=== PATIENT | male | born 1950 | race Caucasian/White ===

== ENCOUNTER 2022-05-09 13:42 | Outpatient (CLI) | payer MEDICARE | END 2022-05-09 13:43 | disposition home or self-care (01) | LOC: CSHWCC 13:42 | PROVIDERS: ATTEND Nurse Practitioner Family | DX: L89.312 Pressure ulcer of right buttock, stage 2 (principal); L89.322 Pressure ulcer of left buttock, stage 2 ==

== ENCOUNTER 2023-02-05 10:19 | Outpatient (CLI) | payer MEDICARE | END 2023-02-05 10:20 | disposition home or self-care (01) | LOC: CSHWCC 10:19 | PROVIDERS: ATTEND Physician Assistant | DX: L89.152 Pressure ulcer of sacral region, stage 2 (principal) | CPT/HCPCS: 99213; G0463 ==

== ENCOUNTER 2023-05-22 13:55 | Outpatient (CLI) | payer MEDICARE | END 2023-05-22 13:56 | disposition home or self-care (01) | LOC: CSHWCC 13:55 | PROVIDERS: ATTEND Nurse Practitioner Family | DX: S40.811D Abrasion of right upper arm, subsequent encounter (principal); L89.152 Pressure ulcer of sacral region, stage 2; I87.311 Chronic venous hypertension (idiopathic) with ulcer of right lower extremity; L97.312 Non-pressure chronic ulcer of right ankle with fat layer exposed | CPT/HCPCS: 11042; 11045; 97597; G0463; 99214 ==

== ENCOUNTER 2023-06-06 15:57 | Outpatient (CLI) | payer MEDICARE | END 2023-06-06 15:58 | disposition home or self-care (01) | LOC: CSHWCC 15:57 | PROVIDERS: ATTEND Nurse Practitioner Family | DX: S40.811D Abrasion of right upper arm, subsequent encounter (principal); L89.152 Pressure ulcer of sacral region, stage 2; I87.311 Chronic venous hypertension (idiopathic) with ulcer of right lower extremity; L97.312 Non-pressure chronic ulcer of right ankle with fat layer exposed | CPT/HCPCS: 11042; 97597 ==

== ENCOUNTER 2023-06-11 | Outpatient (CLI) | payer MEDICARE | END 2023-06-11 13:16 | disposition home or self-care (01) | DX: S40.811D Abrasion of right upper arm, subsequent encounter (principal); L89.152 Pressure ulcer of sacral region, stage 2; I87.311 Chronic venous hypertension (idiopathic) with ulcer of right lower extremity; L97.312 Non-pressure chronic ulcer of right ankle with fat layer exposed ==

== ENCOUNTER 2023-06-25 12:53 | Outpatient (CLI) | payer MEDICARE | END 2023-06-25 12:54 | disposition home or self-care (01) | LOC: CSHWCC 12:53 | PROVIDERS: ATTEND Nurse Practitioner Family | DX: L89.152 Pressure ulcer of sacral region, stage 2 (principal); I87.311 Chronic venous hypertension (idiopathic) with ulcer of right lower extremity; L97.312 Non-pressure chronic ulcer of right ankle with fat layer exposed; S40.811D Abrasion of right upper arm, subsequent encounter | CPT/HCPCS: 11042; 11045; 36415; 85610 ==